=== PATIENT | female | born 1980 | race African-American/Black ===

== ENCOUNTER 2018-11-08 22:23 | Emergency (ER) | payer OTHER ==
[~2018-11-08] VITALS: Ht 152.4 cm; Wt 78.0 kg
[2018-11-09] MEDS ORDERED: TESSALON PERLE100 MG PO (00:33)
[2018-11-09] MEDS ORDERED: IBUPROFEN 600600 M1 PO (00:33)
[2018-11-09 01:17] VITALS: BP 114/72
--- NOTE | 2018-11-10 17:58 | EKG ---
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
== END 2018-11-09 01:19 | disposition home or self-care (01) ==
LOC: ER 22:23
DX: J06.9 Acute upper respiratory infection, unspecified (principal); F17.210 Nicotine dependence, cigarettes, uncomplicated; J45.909 Unspecified asthma, uncomplicated; Z88.5 Allergy status to narcotic agent